=== PATIENT | male | born 1985 | race African-American/Black ===

== ENCOUNTER 2023-10-12 03:54 | Emergency (ER) | payer MEDICAID ==
[~2023-10-12] VITALS: Ht 193 cm; Wt 142.9 kg
[2023-10-12] MEDS ORDERED: HYDROCODONE/APAP 10/325MG TABLET ONE (04:53)
[2023-10-12] MEDS ORDERED: HYDR-3980 PO (04:55)
[2023-10-12] MEDS ORDERED: PENI500T PO (04:55)
[2023-10-12] MEDS ORDERED: IBUP-1957 PO (04:55)
[2023-10-12 04:56] VITALS: BP 198/103; TEMP 98.2; O2SAT 99
[2023-10-12] MEDS ORDERED: LIDOCAINE VISCOUS 2% UD 15 ML UDC MM ONE (05:00)
[2023-10-12] MEDS ORDERED: HYDROCODONE/APAP 10/325MG TABLET PO ONE (05:00)
== END 2023-10-12 04:59 | disposition home or self-care (01) ==
LOC: ER 03:59
DX: K04.7 Periapical abscess without sinus (principal)